=== PATIENT | male | born 1950 | race African-American/Black ===

== ENCOUNTER 2016-04-18 06:07 | Day surgery (SDC) | payer BC ==
[2016-04-15 14:10] VITALS: BMI 39.0
[2016-04-18] MEDS ORDERED: oxyCODONE HCL 10 MG SUSTAINED ACTING TABLET PO STA (06:22)
[2016-04-18] MEDS ORDERED: THROMBIN (BOVINE) 5,000 UNIT VIAL TP ONE ×2 (07:20→09:54)
[2016-04-18] MEDS ORDERED: BUPIVACAINE HCL/PF 2.5 MG/ML - 30 ML VIAL IJ ONE ×2 (07:20→07:21)
[2016-04-18] MEDS ORDERED: methylPREDNISolone ACET (DEPO) 40 MG/1 ML VIAL ONE (07:20)
--- NOTE | 2016-04-18 07:50 | HP ---
History & Physical Update - History History: No Change - Physical Physical: No Change - Assessment Assessment: No Change - Plan Plan: No Change (This is my first time meeting the patient. Introduced myself and informed patient that I will be assisting Dr. Chan throughout the procedure.)
[2016-04-18] MEDS ORDERED: PROPOFOL 20 ML ONE ×3 (08:02)
[2016-04-18] MEDS ORDERED: MIDAZOLAM HCL 2 MG/2 ML SINGLE DOSE VIAL ONE ×2 (08:02→11:20)
[2016-04-18] MEDS ORDERED: BUPIVACAINE HCL/PF 0.5% (5MG/ML) 10 ML VIAL ONE (08:02)
[2016-04-18] MEDS ORDERED: LIDOCAINE 1%/EPI 1:100000 (50 ML MULTI DOSE VIAL) INF ONE (08:45)
[2016-04-18] MEDS ORDERED: ONDANSETRON 4 MG/2 ML VIAL IVPUSH PRN (09:14)
[2016-04-18] MEDS ORDERED: methylPREDNISolone ACET (DEPO) 40 MG/1 ML VIAL IM ONE (09:53)
[2016-04-18] MEDS ORDERED: BUPIVACAINE HCL/PF 0.25% (2.5MG/ML) 10 ML VIAL IJ ONE (09:54)
--- NOTE | 2016-04-18 10:24 | OP ---
Operative Note - Note: Operative Date: 04/18/16 Pre-Operative Diagnosis: Spinal stenosis, lumbar radiculopathy Operation: Laminectomy L4-S1 Post-Operative Diagnosis: Same as Pre-op Surgeon: Zain Chan Satellite Dish Technician: Enmanuel Carrillo Anesthesiologist/DISPATCHER TOW TRUCK: Leanna Turner Anesthesia: Spinal Estimated Blood Loss (mls): 20 Fluid Volume Replaced (mls): 1,000 Operative Report Dictated: Yes
--- NOTE | 2016-04-18 10:24 | SURG ---
Surgery Business Leader Note Business Leader: Enmanuel Carrillo PA-C Date of Service: 04/18/16 Diagnosis: Spinal stenosis, lumbar radiculopathy Procedure: CPT: 79982 --> Bilateral laminectomy L4-S1 I was present for the entirety of the operative procedure. For further detail, please refer to operative report. Visit type - Case Type Case Type: Scheduled Admission - New patient This patient is new to me today: Yes Date on this admission: 04/18/16
[2016-04-18] MEDS ORDERED: ACETAMINOPHEN 1000 MG/100 ML VIAL (NON FORMULARY) IVPB ONE (10:28)
[2016-04-18 12:40] VITALS: BP 145/82; PULSE 61; TEMP 98
--- NOTE | 2016-04-19 12:09 | OP ---
DATE OF OPERATION: 04/18/2016 PREOPERATIVE DIAGNOSIS: Spinal stenosis, L4-L5, L5-S1. POSTOPERATIVE DIAGNOSIS: Spinal stenosis, L4-L5, L5-S1. PROCEDURE PERFORMED: Laminectomy L4-L5, L5-S1. SURGEON: Zain Chan MD [employer] SALES MANAGER: SELENA Mckee ESTIMATED BLOOD LOSS: 250 mL. INTRAVENOUS FLUIDS: Per Anesthesia. ANESTHESIA: Spinal. COMPLICATIONS: None. DISPOSITION: Patient brought to the PACU in stable condition. INDICATIONS FOR SURGERY: The patient is a 65-year-old gentleman who has been suffering from pain from his back down his legs. X-rays and MRI were completed, which noted that he had spinal stenosis at L4-L5 and L5-S1. He had gone through an exhaustive course of treatment for this which included medications, physical therapy, as well as injections. Unfortunately, his pain continued to persist despite all this. At this point, risks, benefits, and alternatives were discussed, and the patient consented to surgery. OPERATIVE NOTE: Patient was brought into the operating room by the anesthesia staff. After appropriate patient identification was performed, spinal anesthesia was given. He was placed prone onto the Gaudencio frame. The patient was able to position himself to avoid all areas of bony prominences. Two needles were placed into the back to galo off the L4 and S1 segments and x-rays taken to confirm this was correct. The needles were removed, and 10 mL of lidocaine with epinephrine was injected into his back at this time. His back was prepped and draped in the usual sterile manner. At this point, a time-out was completed. An incision was made from the top of L4 down to the bottom of S1. Dissection was carried down to the fascia. The fascia was then split open at this time, and appropriate retractors were then placed. A spinal needle was placed onto the L5 lamina to galo off the L5-S1 segment. An x-ray was taken to confirm this was correct. Needle was removed, and the microscope was brought in. At this point, the interspinous ligament at L4-L5 and L5-S1 was removed. The spinous process at L5 was removed. A bur was used to remove the lamina of L5. The segment was identified and removed. A complete decompression was performed by removing the flavum as well as portions of the inferior and superior facet. By the end of the procedure, both the L5 and S1 nerve roots appeared to be well decompressed. All bleeding was well controlled at this time. Steroids were placed over the nerve root. Floseal was placed over that. The fascia was closed with a number 1 Vicryl suture. The subcutaneous tissues were closed with 2-0 Vicryl suture. Skin was closed with 3-0 Monocryl suture. Dermabond was applied. Steri-Strips were applied, and sterile dressings applied. Patient was placed supine on the OR bed and brought to the PACU in stable condition. ZAIN CHAN M.D. IRISH/[id number]
== END 2016-04-18 12:47 | disposition home or self-care (01) ==
LOC: FASU 06:07
PROVIDERS: ATTEND Orthopaedic Surgery Orthopaedic Surgery of the Spine
PROC: 01NB0ZZ Release Lumbar Nerve, Open Approach (ICD-10-PCS; principal; 2016-04-18 08:21)
DX: M48.06 Spinal stenosis, lumbar region (principal); M48.07 Spinal stenosis, lumbosacral region
CPT/HCPCS: 72100-TC; 76000-TC; 94760